=== PATIENT | male | born 1945 | race Two or more races ===

== ENCOUNTER → 2024-09-22 | Outpatient (CLI) | payer OTHER, MEDICAID, SELFPAY ==
[2024-09-22 08:37] LABS: Glucose Estimated Average 146 mg/dL (80-131); Hemoglobin A1C 6.7 % Hgb (4.8-6.0)
[2024-09-22 08:39] LABS: Parathyroid Hormone Intact 53.2 pg/ml (18.5-88.0)
[2024-09-22 08:48] LABS: Alanine Aminotransferase 17 U/L (10-49); Albumin, Serum 4.5 gm/dL (3.4-4.8); Alkaline Phosphatase 91 U/L (46-116); Anion Gap 8 (7-16); Aspartate Amino Transferase 18 U/L (0-34); BUN/Creatinine Ratio 18 Ratio (12-20); Bilirubin,Total 0.6 mg/dL (0.3-1.2); Blood Urea Nitrogen 20 mg/dL (9-23); Calcium 9.5 mg/dL (8.3-10.6); Calcium (Corrected) 9.5 mg/dL (8.5-10.1); Carbon Dioxide 27.4 mMol/L (20.0-31.0); Cardiac Risk Estimate 2.8 RATIO (4.0-6.7); Chloride 105 mMol/L (98-107); Cholesterol 96 mg/dL (132-200); Creatinine (Component) 1.1 mg/dL (0.6-1.3); Globulin 2.3 gm/dL (2.3-3.5); Glucose 132 mg/dL (74-106); HDL Cholesterol 34 mg/dL (40-60); LDL Cholesterol,Calculated 38 mg/dL (0-130); Osmolality,Calculated 284 (275-295); Potassium 4.7 mMol/L (3.4-5.1); Sodium 140 mMol/L (136-145); Total Protein 6.8 gm/dL (5.7-8.2); Triglycerides 119 mg/dL (30-150); eGFR > 60 See Note
== END | disposition home or self-care (01) ==
PROVIDERS: PCP Internal Medicine; Referring Provider Internal Medicine; Visit Provider Internal Medicine
DX: I12.9 Hypertensive chronic kidney disease with stage 1 through stage 4 chronic kidney disease, or unspecified chronic kidney disease (principal); E11.22 Type 2 diabetes mellitus with diabetic chronic kidney disease; N18.30 Chronic kidney disease, stage 3 unspecified; E78.5 Hyperlipidemia, unspecified
CPT/HCPCS: 36415; 80053; 80061; 82043; 82570; 83036; 83970

== ENCOUNTER → 2025-02-22 | Outpatient (CLI) | payer MEDICARE, MEDICAID, SELFPAY ==
[2025-02-22 08:07] LABS: Collection Type, Urine Clean Catch; RBC,Urine 0 /hpf (0-3); WBC,Urine 0 /hpf (0-5)
[2025-02-22 08:36] LABS: Basophils % (Auto) 1 % (0-2.5); Eosinophils # (Auto) 0.2 Thou/mm3 (0.0-0.5); Eosinophils % (Auto) 3 % (0-10); Hematocrit 36.8 % (41.0-53.0); Hemoglobin 13.1 g/dL (13.5-16.0); Immature Granulocytes % (Auto) 0 % (0-0); Immature Granulocytes Auto 0.01 Thou/mm3 (0.00-0.00); Lymphocytes # (Auto) 1.8 Thou/mm3 (1.0-4.8); Lymphocytes % (Auto) 26 % (10-50); Mean Corpuscular HGB Conc 35.6 g/dl (31.0-37.0); Mean Corpuscular Hemoglobin 30.4 pg (25.0-35.0); Mean Corpuscular Volume 85 fL (80-100); Monocytes # (Auto) 0.5 Thou/mm3 (0.0-0.8); Monocytes % (Auto) 7 % (0-12); Neutrophils # (Auto) 4.5 Thou/mm3 (1.8-7.7); Neutrophils % (Auto) 63 % (37-80); Nucleated Red Blood Cell % 0 /100 WBC (0); Platelet Count 265 Thou/mm3 (140-440); Red Blood Count 4.31 Miln/mm3 (4.50-5.90); White Blood Count 7.2 Thou/mm3 (3.8-10.6)
[2025-02-22 08:47] LABS: Glucose Estimated Average 148 mg/dL (80-131); Hemoglobin A1C 6.8 % Hgb (4.8-6.0)
[2025-02-22 09:00] LABS: Parathyroid Hormone Intact 37.2 pg/ml (18.5-88.0)
[2025-02-22 09:00] LABS: Creatinine MALB Rnd Ur 94 mg/dL (30-125); Microalbumin Creat Ratio 335 mg/gCrea (<30); Microalbumin, Random Urine 315 mg/L (0-300)
[2025-02-22 09:08] LABS: Bilirubin,Urine Negative (Negative); Blood,Urine Negative (Negative); Clarity,Urine Clear (Clear/Hazy); Color,Urine Yellow (Lt Yel-Yel); Glucose, Urine 4+ (Negative); Ketones,Urine Negative (Negative); Leukocyte Esterase,Urine Negative (Negative); Nitrite,Urine Negative (Negative); Protein,Urine 1+ (Neg - Trace); Specific Gravity,Urine 1.028 (1.001-1.035); Squamous Epithelial Cell,Urine < 1 /hpf (0-5); Urobilinogen,Urine Negative mg/dL (0.0-1.0)
[2025-02-22 09:47] LABS: Alanine Aminotransferase 7 U/L (10-49); Albumin, Serum 4.2 gm/dL (3.4-4.8); Albumin/Globulin Ratio 1.6 (1.2-2.2); Alkaline Phosphatase 95 U/L (46-116); Anion Gap 9 (7-16); Aspartate Amino Transferase 15 U/L (0-34); BUN/Creatinine Ratio 16 Ratio (12-20); Bilirubin,Total 0.6 mg/dL (0.3-1.2); Blood Urea Nitrogen 18 mg/dL (9-23); Calcium 8.9 mg/dL (8.3-10.6); Calcium (Corrected) 8.9 mg/dL (8.5-10.1); Carbon Dioxide 25.8 mMol/L (20.0-31.0); Cardiac Risk Estimate 3.4 RATIO (4.0-6.7); Chloride 106 mMol/L (98-107); Cholesterol 100 mg/dL (132-200); Creatinine (Component) 1.1 mg/dL (0.6-1.3); Globulin 2.6 gm/dL (2.3-3.5); Glucose 118 mg/dL (74-106); HDL Cholesterol 29 mg/dL (40-60); LDL Cholesterol,Calculated 43 mg/dL (0-130); Osmolality,Calculated 284 (275-295); Potassium 4.5 mMol/L (3.4-5.1); Sodium 141 mMol/L (136-145); Thyroid Stimulating Hormone 0.79 uIU/mL (0.55-4.78); Total Protein 6.8 gm/dL (5.7-8.2); Triglycerides 142 mg/dL (30-150); eGFR > 60 See Note
== END | disposition home or self-care (01) ==
LOC: COPL 07:36
PROVIDERS: PCP Internal Medicine; Referring Provider Internal Medicine; Visit Provider Internal Medicine
DX: I12.9 Hypertensive chronic kidney disease with stage 1 through stage 4 chronic kidney disease, or unspecified chronic kidney disease (principal); E11.22 Type 2 diabetes mellitus with diabetic chronic kidney disease; N18.31 Chronic kidney disease, stage 3a; E78.5 Hyperlipidemia, unspecified
CPT/HCPCS: 36415; 80053; 80061; 81001; 82043; 82570; 83036; 83970; 84443; 85025

== ENCOUNTER → 2025-08-15 | Outpatient (CLI) | payer MEDICARE, MEDICAID, SELFPAY ==
[2025-08-15 09:47] LABS: Basophils # (Auto) 0.0 Thou/mm3 (0.0-0.2); Basophils % (Auto) 1 % (0-2.5); Eosinophils # (Auto) 0.2 Thou/mm3 (0.0-0.5); Eosinophils % (Auto) 4 % (0-10); Hematocrit 41.6 % (41.0-53.0); Hemoglobin 13.9 g/dL (13.5-16.0); Immature Granulocytes Auto 0.01 Thou/mm3 (0.00-0.00); Lymphocytes # (Auto) 1.7 Thou/mm3 (1.0-4.8); Lymphocytes % (Auto) 31 % (10-50); Mean Corpuscular HGB Conc 33.4 g/dl (31.0-37.0); Mean Corpuscular Hemoglobin 29.6 pg (25.0-35.0); Mean Corpuscular Volume 89 fL (80-100); Monocytes # (Auto) 0.5 Thou/mm3 (0.0-0.8); Monocytes % (Auto) 9 % (0-12); Neutrophils # (Auto) 3.0 Thou/mm3 (1.8-7.7); Neutrophils % (Auto) 55 % (37-80); Nucleated Red Blood Cell # 0.00 Thou/mm3 (0.00-0.00); Nucleated Red Blood Cell % 0 /100 WBC (0); Platelet Count 215 Thou/mm3 (140-440); RDW Standard Deviation 44.2 fL (35.1-43.9); Red Blood Count 4.70 Miln/mm3 (4.50-5.90); White Blood Count 5.5 Thou/mm3 (3.8-10.6)
[2025-08-15 10:01] LABS: Parathyroid Hormone Intact 41.4 pg/ml (18.5-88.0)
[2025-08-15 10:03] LABS: Vitamin D 25 Hydroxy Total 36.2 ng/mL (7.3-40.2)
[2025-08-15 10:04] LABS: Alanine Aminotransferase 15 U/L (10-49); Albumin, Serum 4.1 gm/dL (3.4-4.8); Albumin/Globulin Ratio 1.9 (1.2-2.2); Alkaline Phosphatase 79 U/L (46-116); Anion Gap 10 (7-16); Aspartate Amino Transferase 19 U/L (0-34); BUN/Creatinine Ratio 14 Ratio (12-20); Bilirubin,Total 0.6 mg/dL (0.3-1.2); Blood Urea Nitrogen 14 mg/dL (9-23); Calcium 8.8 mg/dL (8.3-10.6); Calcium (Corrected) 8.8 mg/dL (8.5-10.1); Carbon Dioxide 25.3 mMol/L (20.0-31.0); Cardiac Risk Estimate 4.7 RATIO (4.0-6.7); Chloride 109 mMol/L (98-107); Cholesterol 146 mg/dL (132-200); Creatinine (Component) 1.0 mg/dL (0.6-1.3); Globulin 2.2 gm/dL (2.3-3.5); Glucose 127 mg/dL (74-106); HDL Cholesterol 31 mg/dL (40-60); LDL Cholesterol,Calculated 84 mg/dL (0-130); Osmolality,Calculated 289 (275-295); Potassium 4.0 mMol/L (3.4-5.1); Sodium 144 mMol/L (136-145); Thyroid Stimulating Hormone 1.23 uIU/mL (0.55-4.78); Total Protein 6.3 gm/dL (5.7-8.2); Triglycerides 153 mg/dL (30-150); eGFR > 60 See Note
[2025-08-15 10:56] LABS: Misc Send Out* See Sep Rpt
[2025-08-15 11:36] LABS: Collection Type, Urine Clean Catch
[2025-08-15 11:47] LABS: Bilirubin,Urine Negative (Negative); Blood,Urine Negative (Negative); Clarity,Urine Clear (Clear/Hazy); Color,Urine Lt-Yellow (Lt Yel-Yel); Glucose, Urine 3+ (Negative); Ketones,Urine Negative (Negative); Leukocyte Esterase,Urine Negative (Negative); Nitrite,Urine Negative (Negative); PH,Urine 6.0 (5.0-7.0); Protein,Urine 2+ (Neg - Trace); RBC,Urine 3 /hpf (0-3); Specific Gravity,Urine 1.021 (1.001-1.035); Squamous Epithelial Cell,Urine < 1 /hpf (0-5); Urobilinogen,Urine Negative mg/dL (0.0-1.0); WBC,Urine 1 /hpf (0-5)
[2025-08-15 12:05] LABS: Creatinine MALB Rnd Ur 128 mg/dL (30-125); Microalbumin Creat Ratio 297 mg/gCrea (<30); Microalbumin, Random Urine > 380 mg/L (0-300)
== END | disposition home or self-care (01) ==
LOC: COPL 08:21
PROVIDERS: PCP Internal Medicine; Referring Provider Internal Medicine; Visit Provider Internal Medicine
DX: E11.22 Type 2 diabetes mellitus with diabetic chronic kidney disease (principal); I12.9 Hypertensive chronic kidney disease with stage 1 through stage 4 chronic kidney disease, or unspecified chronic kidney disease; N18.30 Chronic kidney disease, stage 3 unspecified; E78.5 Hyperlipidemia, unspecified
CPT/HCPCS: 36415; 80053; 80061; 81001; 82043; 82306; 82570; 83036; 83970; 84443; 85025

== ENCOUNTER 2025-09-24 17:40 | Emergency (ER) | payer OTHER, MEDICAID, SELFPAY ==
--- NOTE | 2025-09-24 17:45 | EKG_ITS ---
[facility] Test Date: 2025-09-24 Pat Name: CAROLE DELGADO Department: Room: - Gender: Male Customer Support Consultant: : 1945 Requested By: Delmer Butts Order Number: [id number] Reading MD: Delmer Butts Measurements Intervals [place] Rate: 90 P: MI: QRS: 26 QRSD: 81 T: -20 QT: 363 QTc: 446 Interpretive Statements SUPRAVENTRICULAR RHYTHM NONSPECIFIC T-WAVE ABNORMALITY ABNORMAL RHYTHM ECG No previous ECG available for comparison /store/S0/[id number].pdf
[2025-09-24 19:00] VITALS: BP 153/60; PULSE 99; RESP 20; TEMP 37.6; O2SAT 96
--- NOTE | 2025-09-24 19:04 | XR_ITS ---
Examination: CTA carotids with intravenous contrast CTA brain, head with intravenous contrast. 2-D sagittal, coronal reconstructions. 3-D reconstructions. Exam date and time: October 25, 2024, 2044 hours INDICATIONS: Weakness shortness of breath hiccups today CTDI: vol (mGy) 19.35 DLP: (mGycm) 449 Technique: Multiple CTA axial brain, head carotid images post intravenous contrast injection 75 cc, [id number]. 2-D sagittal, coronal reconstructions. 3-D reconstructions, 3-D post processing including vascular maximum intensity projection images. Low dose protocols were performed. One or more of the following dose reduction techniques were used; automated exposure control, adjustment of the mA and/or KV according to patient size, use of iterative reconstruction technique. Findings: Patient motion degrades scan image quality No significant common carotid carotid bifurcation or internal carotid artery stenoses Dominant left vertebral artery in the neck with no critical stenoses Intracranial vertebral arteries basilar artery posterior cerebral branches fill with no large vessel occlusions Petrous juxtasellar internal carotid arteries fill M1 segments middle cerebral arteries middle cerebral artery trifurcation vessels and anterior cerebral arteries fill with no large vessel occlusions IMPRESSION: Study limited by patient motion No significant neck arterial stenoses No cerebral large vessel arterial occlusions or thrombus
--- NOTE | 2025-09-24 19:04 | XR_ITS ---
Examination: CT brain head without contrast. 2-D sagittal coronal reconstructions Date and time of exam: September 24, 2025, 1953 hours, headache today CTDI: vol (mGy): 46 DLP: (mGycm): 877 Technique: Multiple CT axial sections of the brain have been obtained, 5 mm slice thickness. Contrast has not been administered. 2-D sagittal, coronal reconstructions have been obtained Low dose protocols were performed. One or more of the following dose reduction techniques were used; automated exposure control, adjustment of the mA and/or KV according to patient size, use of iterative reconstruction technique. Findings: No significant ventricular enlargement. 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 No mass effect or midline shift Basal cisterns are not remarkable. Fourth ventricle is midline. Cranial vault intact. Impression: Negative for acute hemorrhage, mass effect or midline shift
--- NOTE | 2025-09-24 19:04 | XR_ITS ---
EXAMINATION: AP chest single view Technique sitting AP chest single view Date and time: September 24, 2025, 1910 hours INDICATIONS: Shortness of breath confusion today. FINDINGS: Moderate prominence left ventricle Lordotic chest No pneumonia or pulmonary edema Prominent osteopenia IMPRESSION: No pneumonia or pulmonary edema
--- NOTE | 2025-09-24 19:11 | PD.EDRME ---
Rapid Medical Screening Exam RME Arrival date/time: 09/24/25 17:40 This is a case of 80-year-old male who was brought by the daughter due to general sudden weakness specially on both lower extremities associated with hiccupsPersistence of the symptoms thus daughter decided to bring patient in ER Chief Complaint: Weakness Time Seen by Provider: 09/24/25 18:47 Vital signs: Vital Signs Temperature 99.6 F 09/24/25 19:00 Pulse Rate 99 09/24/25 19:00 Respiratory Rate 20 09/24/25 19:00 Blood Pressure 153/60 H 09/24/25 19:00 Pulse Oximetry (%) 96 09/24/25 19:00 Oxygen Delivery Method Room Air 09/24/25 19:00 Exam: mild distress weakness BLE clear BS NRRR Clinical Impression: generalized weakness ALOC
[2025-09-24 19:51] VITALS: BMI 23.3
[2025-09-24 20:01] LABS: Lactate (Lactic Acid) 1.1 mMol/L (0.4-2.0)
[2025-09-24 20:04] LABS: Basophils # (Auto) 0.0 Thou/mm3 (0.0-0.2); Basophils % (Auto) 0 % (0-2.5); Eosinophils # (Auto) 0.0 Thou/mm3 (0.0-0.5); Eosinophils % (Auto) 0 % (0-10); Hematocrit 37.1 % (41.0-53.0); Hemoglobin 12.6 g/dL (13.5-16.0); Immature Granulocytes Auto 0.11 Thou/mm3 (0.00-0.00); Lymphocytes # (Auto) 0.7 Thou/mm3 (1.0-4.8); Lymphocytes % (Auto) 4 % (10-50); Mean Corpuscular HGB Conc 34.0 g/dl (31.0-37.0); Mean Corpuscular Hemoglobin 29.6 pg (25.0-35.0); Mean Corpuscular Volume 87 fL (80-100); Monocytes # (Auto) 0.9 Thou/mm3 (0.0-0.8); Monocytes % (Auto) 5 % (0-12); Neutrophils # (Auto) 15.7 Thou/mm3 (1.8-7.7); Neutrophils % (Auto) 91 % (37-80); Nucleated Red Blood Cell # 0.00 Thou/mm3 (0.00-0.00); Nucleated Red Blood Cell % 0 /100 WBC (0); Platelet Count 178 Thou/mm3 (140-440); RDW Standard Deviation 42.4 fL (35.1-43.9); Red Blood Count 4.26 Miln/mm3 (4.50-5.90); White Blood Count 17.3 Thou/mm3 (3.8-10.6)
--- NOTE | 2025-09-24 20:13 | PD.EDADULT ---
ED General RME/HPI General Chief complaint: Weakness Stated complaint: Hiccups since 0700, WATTS, unable to walk Time Seen by Provider: 09/24/25 18:47 Arrival date/time: 09/24/25 17:40 RME / HPI RME / HPI narrative: 09/24/25 17:40 This is a case of 80-year-old male who was brought by the daughter due to general sudden weakness specially on both lower extremities associated with hiccupsPersistence of the symptoms thus daughter decided to bring patient in ER Exam: mild distress weakness BLE clear BS NRRR Impression: generalized weakness ALOC Related Data Home Medications ?Medication ?Instructions ?Recorded ?Confirmed glipizide 5 mg tablet, extended 5 mg PO QDAY 01/15/20 01/07/22 release 24 hr lisinopril 40 mg tablet 40 mg PO QDAY 01/15/20 01/07/22 aspirin 81 mg tablet,delayed 81 mg PO QDAY 12/06/21 12/06/21 release levothyroxine 75 mcg capsule 75 mcg PO QDAY 12/06/21 01/07/22 metformin 1,000 mg tablet 1,000 mg PO BID 12/06/21 01/07/22 paroxetine HCl 10 mg tablet 10 mg PO QDAY 12/06/21 01/07/22 propranolol 10 mg tablet 10 mg PO BID 12/06/21 01/07/22 semaglutide 3 mg tablet (Rybelsus) 3 mg PO QDAY 12/06/21 01/07/22 tamsulosin 0.4 mg capsule 0.4 mg PO QHS 12/06/21 01/07/22 Previous Rx's ?Medication ?Instructions ?Recorded baclofen 10 mg tablet 10 mg PO TID PRN Parkinson's 09/25/25 associated hiccups 2 weeks #42 tabs cefuroxime axetil 250 mg tablet 250 mg PO BID 10 days #20 tabs 09/25/25 Allergies Allergy/AdvReac Type Severity Reaction Status Date / Time No Known Allergies Allergy Verified 09/24/25 17:45 ED Exam Narrative Physical exam: Physical Exam: GENERAL: Awake, does answer questions appropriately in [place]araguan, appears stated age HEENT: NC/AT. Moist mucosa. PERRLA/EOMI. CARDIO: Heart RRR, no obvious murmurs, no JVD. PULM: No coughing or visible SOB. Lungs CTA B/L. GI: Abdomen soft, NT/ND, +BS. SKIN/MSK/EXT: No wounds/discoloration/rashes/edema/amputations. +Pedal pulses present B/L. NEURO: Oriented x3, cranial nerves II to XII grossly intact, b/l arms cogwheel rigidity noted, no focal neurologic deficits noted Course Quality Measures none Orders Category Date Time Status Aspiration precautions ONCE Care 09/24/25 23:[address] Screening NOW Care 09/24/25 19:04 Active EKG (ED ONLY) *Do not use* NOW Care 09/24/25 17:46 Completed EKG (ED ONLY) *Do not use* NOW Care 09/24/25 19:[address] angio carotid w head w Stat Exams 09/24/25 19:[address] head/brain wo con Stat Exams 09/24/25 19:04 Completed EKG (ED Only) Stat Exams 09/24/25 17:45 Draft EKG (ED Only) Stat Exams 09/24/25 19:04 Ordered XR chest 1V portable Stat Exams 09/24/25 19:04 Completed Ammonia Stat Lab 09/24/25 19:45 Completed CBC Stat Lab 09/24/25 19:45 Completed CMP [Comprehensive Metabolic Panel] Stat Lab 09/24/25 19:45 Completed Lactic Acid [Lactate (Lactic Acid)] Stat Lab 09/24/25 19:45 Completed Troponin I Stat Lab 09/24/25 19:45 Completed Urinalysis Stat Lab 09/25/25 00:35 Completed Baclofen [Lioresal] Med 09/24/25 23:57 Discontinued 10 mg PO X1 ONE CHLORpromAZINE INJ [Thorazine Inj] Med 09/24/25 21:36 Discontinued 25 mg IV X1 ONE Metoclopramide Inj [Reglan Inj] Med 09/24/25 19:58 Discontinued 10 mg IVP X1 ONE Ringers Lactated 500 ml [Lactated Ringers] 500 ml Med 09/24/25 21:18 Discontinued IV 999 mls/hr cefTRIAXone [Rocephin] 1,000 mg Med 09/25/25 02:04 Discontinued SODIUM CHLORIDE 0.9% (Popper) [Ns 0.9% (P)] 50 ml IV X1 Vital Signs Vital signs: Vital Signs Temperature 99.6 F 09/24/25 19:00 Pulse Rate 99 12/06/25 19:00 Respiratory Rate 20 09/24/25 19:00 Blood Pressure 153/60 H 09/24/25 19:00 Pulse Oximetry (%) 96 09/24/25 19:00 Oxygen Delivery Method Room Air 09/24/25 19:00 Discharge Plan Plan Patient Disposition: HOME (Self Care) Discharge Disposition comment: Please take baclofen 10 mg by mouth 3 times a day as needed for Parkinson associated hiccups Please complete antibiotic regimen for urinary tract infection with cefuroxime 2050 mg by mouth twice a day for 10 days Follow-up with your primary care provider within 5 days follow-up on the hiccups and urinary tract infection If your symptoms worsen or if you develop new chest pain, shortness of breath, dizziness, severe back pain or urinary symptoms - come back to the emergency room immediately. Patient condition on transfer: Stable Prescriptions/Referrals Prescriptions/Med Rec: New cefuroxime axetil 250 mg tablet 250 mg PO BID 10 Days Qty: 20 0RF baclofen 10 mg tablet 10 mg PO TID PRN (Reason: Parkinson's associated hiccups) 14 Days Qty: 42 0RF No Action lisinopril 40 mg tablet 40 mg PO QDAY glipizide 5 mg tablet extended release 24hr 5 mg PO QDAY Patient Comments: before meals Rybelsus 3 mg tablet 3 mg PO QDAY paroxetine HCl 10 mg tablet 10 mg PO QDAY propranolol 10 mg tablet 10 mg PO BID tamsulosin 0.4 mg capsule 0.4 mg PO QHS levothyroxine 75 mcg capsule 75 mcg PO QDAY metformin 1,000 mg tablet 1,000 mg PO BID aspirin 81 mg tablet,delayed release (DR/EC) 81 mg PO QDAY Referrals: No Primary/Family,Physician [Primary Care Provider] - In 1 week Problem List Clinical Impression: Intractable hiccups, Urinary tract infection Patient/Caregiver Discharge Instructions Education Materials: ED Hiccups Print Language: Nicaraguan Stand Alone Forms: Dee Award Info., Patient Portal Info Letter MDM Narrative MDM hospital course (for use when minimal MDM required): HPI: 80-year-old male past medical history of Parkinson's, BPH, hypertension, type 2 diabetes, hypothyroidism, CKD stage II presented to the ED on 09/24 with 1 day of unrelenting hiccuping episode. History taken largely from patient's daughter who is bedside. Daughter does not live with the patient at this time; moreover, he lives with his who is his primary cryptographic vulnerability analyst and gives him his medications. Patient does answer some questions such as answering correctly his name but difficult to get much history out of him secondary to his Parkinson's. Daughter does state that the patient takes all of his medications as prescribed and that neurologically he is at his baseline; however, he started hiccuping earlier this morning and has not stopped for several hours now. Patient also reportedly complained of headache to the daughter but unsure at this time if the patient is endorsing one. On examination, please refer to the physical exam note above, patient presenting with mildly hypertensive 153/60, tachycardic with a heart rate of 99, respiratory rate 20, mildly febrile with a temperature of 99.6 on room air saturating 96%. Pertinent lab findings include leukocytosis with a white count of 17.3 with a left shift 91% neutrophils, hemoglobin of 12.6, likely normocytic anemia from anemia of chronic disease versus iron deficiency anemia, CMP is unremarkable with sodium 137, creatinine 1.4 above baseline 1.1, BUN 27. EKG does not show any concerning ST changes. Chest x-ray and head CT have been ordered and are pending official read. #Unrelenting hiccups Differentials at this time include: Worsening of Parkinson's, phrenic nerve irritation from pneumonia,Possible ischemic stroke, less likely goiter or lymphadenopathy, MD less likely as well as patient does not complain of any chest pain and troponin is negative, no current medications contributing, possible subphrenic abscess or viral infection not ruled out at this time. Pending head CT CT angio of the head and neck Waiting for chest x-ray read, possible pneumonia Gave Reglan 10 mg IV x 1 for symptomatic relief of the hiccups; which did not work Gave 500cc IV LR after CT w/ contrast for CT angio head/neck Plan: Patient to be discharged with the following instructions Please take baclofen 10 mg by mouth 3 times a day as needed for Parkinson associated hiccups Please complete antibiotic regimen for urinary tract infection with cefuroxime 2050 mg by mouth twice a day for 10 days Follow-up with your primary care provider within 5 days follow-up on the hiccups and urinary tract infection If your symptoms worsen or if you develop new chest pain, shortness of breath, dizziness, severe back pain or urinary symptoms - come back to the emergency room immediately. Patient seen and assessed with attending Dr. Shawnee Bautista, DO PGY-2 Internal Medicine - GME Medication Administration(s) Medication Administration History Discontinued Medications Baclofen (Baclofen 10 Mg Tablet) 10 mg PO X1 ONE Stop: 09/24/25 23:58 Last Admin: 09/25/25 01:03 Dose: 10 mg Documented By: SR Chlorpromazine HCl (Chlorpromazine Inj 25 Mg/Ml Ampule 2ml) 25 mg IV X1 ONE Stop: 09/24/25 21:37 Last Admin: 09/24/25 22:49 Dose: 25 mg Documented By: SR Lactated Ringer's (Lactated Ringers) 500 mls @ 999 mls/hr IV .Q31M ONE Stop: 09/24/25 21:48 Last Infusion: 09/24/25 23:26 Dose: Infused Documented By: Admin: 09/24/25 22:55 Dose: 999 mls/hr Documented By: SR Ceftriaxone Sodium 1,000 mg/ (Sodium Chloride) 50 mls @ 100 mls/hr IV X1 ONE Stop: 09/25/25 02:33 Last Infusion: 09/25/25 03:44 Dose: Infused Documented By: Admin: 09/25/25 02:33 Dose: 100 mls/hr Documented By: SR Metoclopramide HCl (Metoclopramide Inj 5 Mg/Ml Vial 2 Ml) 10 mg IVP X1 ONE; Protocol Stop: 09/24/25 19:59 Last Admin: 09/24/25 21:11 Dose: 10 mg Documented By: SR
[2025-09-24 20:22] LABS: Alanine Aminotransferase 13 U/L (10-49); Albumin, Serum 4.5 gm/dL (3.4-4.8); Albumin/Globulin Ratio 1.7 (1.2-2.2); Alkaline Phosphatase 86 U/L (46-116); Anion Gap 10 (7-16); Aspartate Amino Transferase 26 U/L (0-34); BUN/Creatinine Ratio 19 Ratio (12-20); Bilirubin,Total 1.1 mg/dL (0.3-1.2); Blood Urea Nitrogen 27 mg/dL (9-23); Calcium 9.0 mg/dL (8.3-10.6); Calcium (Corrected) 9.0 mg/dL (8.5-10.1); Carbon Dioxide 25.5 mMol/L (20.0-31.0); Chloride 102 mMol/L (98-107); Creatinine (Component) 1.4 mg/dL (0.6-1.3); Estimated Creatinine Clearance 30.8 mL/min (>60); Globulin 2.7 gm/dL (2.3-3.5); Glucose 107 mg/dL (74-106); Osmolality,Calculated 278 (275-295); Potassium 3.9 mMol/L (3.4-5.1); Sodium 137 mMol/L (136-145); Total Protein 7.2 gm/dL (5.7-8.2); Troponin I < 0.020 ng/mL (0.0-0.045); eGFR 51 See Note
[2025-09-24 20:31] LABS: Ammonia < 10 uMol/L (11-32)
[2025-09-24] MEDS: METOCLOPRAMIDE INJ 5 MG/ML VIAL 2 ML 10 MG IVP (21:11)
[2025-09-24] MEDS: CHLORpromAZINE INJ 25 MG/ML AMPULE 2ML IV (22:49)
[2025-09-24] MEDS: RINGERS LACTATED 500 ML 500 ML 999 ML IV (22:55)
[2025-09-24 23:03] VITALS: BP 110/52; PULSE 88; RESP 17; TEMP 36.4; O2SAT 95
[2025-09-25] MEDS: BACLOFEN 10 MG TABLET PO (01:03)
[2025-09-25 01:04] LABS: Collection Type, Urine Voided; Squamous Epithelial Cell,Urine 0 /hpf (0-5)
[2025-09-25 01:08] VITALS: BP 143/65; PULSE 99; RESP 17; O2SAT 96
[2025-09-25 01:27] LABS: Bacteria,Urine 4+; Bilirubin,Urine Negative (Negative); Blood,Urine 1+ (Negative); Clarity,Urine Clear (Clear/Hazy); Color,Urine Lt-Yellow (Lt Yel-Yel); Glucose, Urine Negative (Negative); Ketones,Urine 1+ (Negative); Leukocyte Esterase,Urine Positive (Negative); Nitrite,Urine Positive (Negative); PH,Urine 6.0 (5.0-7.0); Protein,Urine 1+ (Neg - Trace); RBC,Urine 2 /hpf (0-3); Specific Gravity,Urine 1.040 (1.001-1.035); Urobilinogen,Urine Negative mg/dL (0.0-1.0); WBC,Urine 71 /hpf (0-5)
[2025-09-25] MEDS: cefTRIAXone 1,000 MG in SODIUM CHLORIDE 0.9% (Popper) 50 ML 100 MG IV (02:33)
[2025-09-25 05:00] VITALS: BP 162/71; PULSE 97; RESP 18; TEMP 36.7
== END 2025-09-25 05:01 | disposition home or self-care (01) ==
PROVIDERS: Nurse Practitioner Family; Emergency Provider Emergency Medicine
DX: N39.0 Urinary tract infection, site not specified (principal); R06.6 Hiccough; R06.02 Shortness of breath; R41.0 Disorientation, unspecified; R51.9 Headache, unspecified; R94.31 Abnormal electrocardiogram [ECG] [EKG]; N18.2 Chronic kidney disease, stage 2 (mild); I12.9 Hypertensive chronic kidney disease with stage 1 through stage 4 chronic kidney disease, or unspecified chronic kidney disease; E11.22 Type 2 diabetes mellitus with diabetic chronic kidney disease; Z79.84 Long term (current) use of oral hypoglycemic drugs
CPT/HCPCS: 36415; 70450; 70496; 70498; 71045; 80053; 81001; 82140; 83605; 84484; 85025; 87040; 93005; 96361; 96365; 96375; 99284; A4649; J0696; J2765; J3230; J7050; J7120; Q9967; A9270